=== PATIENT | male | born 1970 | race Caucasian/White ===

== ENCOUNTER 2016-08-13 07:30 | Observation (INO) ==
[2016-08-13] MEDS ORDERED: Aspirin 81 MG TAB.CHEW PO ONE (07:40)
[2016-08-13] MEDS ORDERED: 0.9 % Sodium Chloride 500 ML IVC ONE (07:40)
--- NOTE | 2016-08-13 07:51 | Emergency Department Note ---
Disposition Clinical Impression: Elevated liver enzymes Chest pain Qualifiers: Chest pain type: precordial pain Qualified Code(s): R07.2 - Precordial pain Disposition: Admitted As Inpatient Condition: Good Chest Pain HPI - General Chief Complaint: ED Chest Pain Stated Complaint: chest pain Time Seen by Provider: 08/13/16 07:35 Source: patient Mode of arrival: private vehicle Limitations: no limitations Vital Signs Reviewed: Yes Nursing Notes Reviewed: Yes - History of Present Illness Pt complaint: chest pain Onset (ago): hour(s) Time: 01:00 Duration: intermittent Onset: during rest Pain Location: substernal, left chest Severity: moderate Severity scale (1-10): 6 Quality: aching, heaviness Pain Radiation: none Improves with: nothing Worsens with: exertion, inspiration Context: other (Hx of similar pain about a year or two ago) Associated symptoms: Reports: nausea, dyspnea. Denies: vomiting, diaphoresis, sense of impending doom, syncope, palpitations, fever, cough, leg swelling Treatments prior to arrival chest pain: aspirin - Related Data Home Medications Medication Instructions Recorded Confirmed No Known Home Drugs 08/13/16 08/13/16 Allergies Allergy/AdvReac Type Severity Reaction Status Date / Time Tetracycline Allergy Rash Verified 08/13/16 09:18 All systems ED: reviewed and negative except as stated. Constitutional: Denies: fever, chills, weakness, night sweats Eyes: Denies: vision change Cardiovascular: Reports: as per HPI, chest pain, dyspnea on exertion. Denies: palpitations, orthopnea, edema, syncope Respiratory: Reports: cough (intermittently), dyspnea. Denies: wheezes, hemoptysis, stridor, sputum production Gastrointestinal: Denies: abdominal pain, nausea, vomiting, diarrhea Musculoskeletal: Denies: back pain, neck pain, joint swelling, arthralgia Integumentary: Denies: rash Neurological: Denies: headache, weakness, confusion, vertigo Psychiatric: Denies: anxiety Hematological/Lymphatic: Denies: easy bleeding, easy bruising Chest Pain PMH - Past Medical History Medical history: Reports: non-contributory Psychiatric history: Reports: no psych history - Social History Smoking Status: Current every day smoker Alcohol use: Reports: occasionally Drug use: Reports: cocaine, marijuana, other Physical Exam - General Limitations: no limitations General appearance: alert, in no apparent distress - Head Head exam: atraumatic, normocephalic, normal inspection - Eye Eye exam: Present: normal appearance, PERRL. Absent: scleral icterus, conjunctival injection, periorbital swelling - ENT ENT exam: normal exam, normal oropharynx, mucous membranes moist - Neck Neck exam: Present: normal inspection, full ROM, trachea midline. Absent: meningismus - Chest Chest inspection: Present: normal inspection - Respiratory Respiratory exam: Present: normal lung sounds bilaterally. Absent: respiratory distress, wheezes, stridor, accessory muscle use, prolonged expiratory phase - Cardiovascular Cardiovascular exam: Present: regular rate, normal rhythm, normal heart sounds - Abdominal Exam Abdominal exam: Present: soft, tenderness. Absent: distention, guarding, rebound, rigidity, organomegaly Abdominal tenderness: Present: epigastrium, mild - Extremities Exam Extremities exam: Present: normal inspection, full ROM, normal capillary refill. Absent: pedal edema, calf tenderness - Back Exam Back exam: Present: normal inspection - Neurological Exam Neurological exam: Present: alert, oriented X3, CN II-XII intact, normal gait - Psychiatric Psychiatric exam: Present: normal affect, normal mood - Skin Skin exam: Present: warm, dry, intact, normal color Course Course Narrative: Patient presents for evaluation of chest pain that began around 1:00 this morning. It was midsternal and radiating to the left upper chest wall. He had associated nausea and shortness of breath. The pain was worse with walking around. He was able to lie down and go back to sleep for a few hours. When he awoke again at 3 AM the pain was still present. He was eventually able to go back to sleep and then when he awoke at eight. The pain was better, but he felt short of breath and describes a heavy sensation in his chest. He has had an occasional intermittent cough but no fever or malaise. He denies recent leg pain or swelling. There is no family history of DVT or PE and patient denies history of this as well. He did have a long car trip two weeks ago, however, he has experienced no leg pain or swelling. His Well's score is zero, he is not tachypneic or tachycardic. He describes as significant family history of ACS and cardiac dysrhythmia. Upon arrival, he appeared uncomfortable but nontoxic. He received a nitroglycerin which relieved his pain temporarily. When the pain returned. A second nitroglycerin was given. He is now pain-free and resting comfortably. Troponin is 0.00 and EKG is unchanged compared to 2015. LFTs are mildly elevated, which is new compared to 2015, however bilirubin is normal, lipase is normal. Hospitalist was contacted for admission. Patient has been accepted. - Reevaluation(s) Reevaluation #1: Pain gone. Waiting on troponin Time: 08:29 Reevaluation #2: Pain is back but "not nearly as bad". Will give another NTG Time: 08:59 Vital Signs Temperature 97.6 F 08/13/16 07:31 Pulse Rate 63 08/13/16 07:31 Respiratory Rate 18 08/13/16 07:31 Blood Pressure 150/91 08/13/16 07:31 O2 Sat by Pulse Oximetry 98 08/13/16 07:31 Temperature 97.6 F 08/13/16 07:31 Pulse Rate 61 08/13/16 08:44 Respiratory Rate 14 08/13/16 08:44 Blood Pressure 140/81 08/13/16 08:44 O2 Sat by Pulse Oximetry 99 08/13/16 08:44 Oxygen Delivery Oxygen Delivery Room Air Chest Pain - Medical Records Medical records reviewed: Yes I reviewed the patient's medical records. - Lab Data Lab results reviewed: Yes I reviewed the patient's lab results. Lab results narrative: Laboratory Last Values WBC 6.7 K/mcL (4.3-11.1) 08/13/16 07:59 RBC 4.86 M/mcL (4.19-5.50) 08/13/16 07:59 Hgb 14.5 g/dL (12.9-16.9) 08/13/16 07:59 Hct 43.0 % (37.5-50.1) 08/13/16 07:59 MCV 88.5 fL (83.0-100.0) 08/13/16 07:59 MCH 29.8 pg (28.0-33.3) 08/13/16 07:59 MCHC 33.7 g/dL (31.6-35.5) 08/13/16 07:59 RDW 12.7 % (11.5-14.5) 08/13/16 07:59 Plt Count 234 K/mcL (140-400) 08/13/16 07:59 MPV 10.6 fL (9.4-12.4) 08/13/16 07:59 Immature Gran % 0.7 % (0-4) 08/13/16 07:59 Seg Neutrophils % 58.4 % 08/13/16 07:59 Lymphocytes % 25.6 % 08/13/16 07:59 Monocytes % 9.5 % 08/13/16 07:59 Eosinophils % 5.1 % 08/13/16 07:59 Basophils % 0.7 % 08/13/16 07:59 Neutrophils # 3.9 K/mcL (1.6-8.9) 08/13/16 07:59 Lymphocytes # 1.7 K/mcL (0.6-4.6) 08/13/16 07:59 Monocytes # 0.6 K/mcL (0.0-1.3) 08/13/16 07:59 Eosinophils # 0.3 K/mcL (0.0-0.6) 08/13/16 07:59 Basophils # 0.1 K/mcL (0.0-0.2) 08/13/16 07:59 PT 11.8 Seconds (9.4-12.1) 08/13/16 07:59 INR 1.1 08/13/16 07:59 APTT 31.5 Seconds (26.0-36.0) 08/13/16 07:59 Sodium 141 mEq/L (136-145) 08/13/16 07:59 Potassium 3.5 mEq/L (3.5-4.5) 08/13/16 07:59 Chloride 110 mEq/L (98-109) H 08/13/16 07:59 Carbon Dioxide 22 mEq/L (19-29) 08/13/16 07:59 BUN 16 mg/dL (8-26) 08/13/16 07:59 Creatinine 0.87 mg/dL (0.72-1.25) 08/13/16 07:59 Est GFR ( Amer) > 60 (> 60) 08/13/16 07:59 Est GFR (Non-Af Amer) > 60 (> 60) 08/13/16 07:59 BUN/Creatinine Ratio 18 (6-26) 08/13/16 07:59 Glucose 146 mg/dL (70-99) H 08/13/16 07:59 Calculated Osmolality 296 (280-300) 08/13/16 07:59 Calcium 8.8 mg/dL (8.6-10.8) 08/13/16 07:59 Total Bilirubin 0.5 mg/dL (0.2-1.2) 08/13/16 07:59 Direct Bilirubin 0.2 mg/dL (0.0-0.5) 08/13/16 07:59 Indirect Bilirubin 0.3 mg/dL (0.0-1.2) 08/13/16 07:59 AST 38 Units/L (5-34) H 08/13/16 07:59 ALT 95 Units/L (0-55) H 08/13/16 07:59 Alkaline Phosphatase 69 Units/L (38-126) 08/13/16 07:59 Troponin I 0.00 ng/mL (0-0.03) 08/13/16 07:59 Serum Total Protein 6.6 g/dL (6.0-8.3) 08/13/16 07:59 Albumin 3.3 g/dL (3.5-5.0) L 08/13/16 07:59 Globulin 3.3 g/dL (2.4-3.5) 08/13/16 07:59 Albumin/Globulin Ratio 1.0 (1.1-2.2) L 08/13/16 07:59 Lipase 69 Units/L (8-78) 08/13/16 07:59 Result diagrams: 08/13/16 07:59 08/13/16 07:59 Lab Results 08/13/16 08/13/16 08/13/16 Range/Units 07:59 07:59 07:59 WBC 6.7 (4.3-11.1) K/mcL RBC 4.86 (4.19-5.50) M/mcL Hgb 14.5 (12.9-16.9) g/dL Hct 43.0 (37.5-50.1) % MCV 88.5 (83.0-100.0) fL MCH 29.8 (28.0-33.3) pg MCHC 33.7 (31.6-35.5) g/dL RDW 12.7 (11.5-14.5) % Plt Count 234 (140-400) K/mcL MPV 10.6 (9.4-12.4) fL Immature Gran % 0.7 (0-4) % Seg Neutrophils % 58.4 % Lymphocytes % 25.6 % Monocytes % 9.5 % Eosinophils % 5.1 % Basophils % 0.7 % Neutrophils # 3.9 (1.6-8.9) K/mcL Lymphocytes # 1.7 (0.6-4.6) K/mcL Monocytes # 0.6 (0.0-1.3) K/mcL Eosinophils # 0.3 (0.0-0.6) K/mcL Basophils # 0.1 (0.0-0.2) K/mcL PT 11.8 (9.4-12.1) Seconds INR 1.1 APTT 31.5 (26.0-36.0) Seconds Sodium 141 (136-145) mEq/L Potassium 3.5 (3.5-4.5) mEq/L Chloride 110 H (98-109) mEq/L Carbon Dioxide 22 (19-29) mEq/L BUN 16 (8-26) mg/dL Creatinine 0.87 (0.72-1.25) mg/dL Est GFR ( Amer) > 60 (> 60) Est GFR (Non-Af Amer) > 60 (> 60) BUN/Creatinine Ratio 18 (6-26) Glucose 146 H (70-99) mg/dL Calculated Osmolality 296 (280-300) Calcium 8.8 (8.6-10.8) mg/dL Total Bilirubin 0.5 (0.2-1.2) mg/dL Direct Bilirubin 0.2 (0.0-0.5) mg/dL Indirect Bilirubin 0.3 (0.0-1.2) mg/dL AST 38 H (5-34) Units/L ALT 95 H (0-55) Units/L Alkaline Phosphatase 69 (38-126) Units/L Troponin I (0-0.03) ng/mL Serum Total Protein 6.6 (6.0-8.3) g/dL Albumin 3.3 L (3.5-5.0) g/dL Globulin 3.3 (2.4-3.5) g/dL Albumin/Globulin Ratio 1.0 L (1.1-2.2) Lipase 69 (8-78) Units/L 08/13/16 Range/Units 07:59 WBC (4.3-11.1) K/mcL RBC (4.19-5.50) M/mcL Hgb (12.9-16.9) g/dL Hct (37.5-50.1) % MCV (83.0-100.0) fL MCH (28.0-33.3) pg MCHC (31.6-35.5) g/dL RDW (11.5-14.5) % Plt Count (140-400) K/mcL MPV (9.4-12.4) fL Immature Gran % (0-4) % Seg Neutrophils % % Lymphocytes % % Monocytes % % Eosinophils % % Basophils % % Neutrophils # (1.6-8.9) K/mcL Lymphocytes # (0.6-4.6) K/mcL Monocytes # (0.0-1.3) K/mcL Eosinophils # (0.0-0.6) K/mcL Basophils # (0.0-0.2) K/mcL PT (9.4-12.1) Seconds INR APTT (26.0-36.0) Seconds Sodium (136-145) mEq/L Potassium (3.5-4.5) mEq/L Chloride (98-109) mEq/L Carbon Dioxide (19-29) mEq/L BUN (8-26) mg/dL Creatinine (0.72-1.25) mg/dL Est GFR ( Amer) (> 60) Est GFR (Non-Af Amer) (> 60) BUN/Creatinine Ratio (6-26) Glucose (70-99) mg/dL Calculated Osmolality (280-300) Calcium (8.6-10.8) mg/dL Total Bilirubin (0.2-1.2) mg/dL Direct Bilirubin (0.0-0.5) mg/dL Indirect Bilirubin (0.0-1.2) mg/dL AST (5-34) Units/L ALT (0-55) Units/L Alkaline Phosphatase (38-126) Units/L Troponin I 0.00 (0-0.03) ng/mL Serum Total Protein (6.0-8.3) g/dL Albumin (3.5-5.0) g/dL Globulin (2.4-3.5) g/dL Albumin/Globulin Ratio (1.1-2.2) Lipase (8-78) Units/L - Radiology Data Radiology results reviewed: Yes I reviewed the patient's radiology results. Chest X-Ray 08/13/16 07:40 IMPRESSION: Negative view of the chest. D/ / Ralph Seo MD / Ralph Seo MD Interpreting Provider: Ralph Seo MD - EKG Data EKG attestation: Yes I reviewed and interpreted this EKG. EKG shows normal: sinus rhythm Rate: normal Rhythm: NSR [place]/QRS: IVCD Voltage: c/w LVH Interpretation: unchanged when compared to prior tracing (date) (2014) - Core Measures AMI Core Measures Followed: Yes Heart Score - Score History: Moderately Suspicious EKG: Non Specific repolarisation Disturbance Age: Less than 45 Risk Factors: 1-2 risk factors Troponin: Less than normal limit HEART Score Total: 3
[2016-08-13] MEDS: Nitroglycerin 0.4 MG TAB.SUBL SL ONE ×2 (08:11→09:01)
--- NOTE | 2016-08-13 08:14 | Emergency Department Note ---
Disposition Clinical Impression: Chest pain, Elevated liver enzymes Disposition: Admitted As Inpatient Condition: Good Chest Pain HPI - General Chief Complaint: ED Chest Pain Stated Complaint: chest pain Time Seen by Provider: 08/13/16 07:35 Source: patient Limitations: no limitations Vital Signs Reviewed: Yes Nursing Notes Reviewed: Yes - History of Present Illness Severity scale (1-10): 6 - Related Data Home Medications Medication Instructions Recorded Confirmed No Known Home Drugs 08/13/16 08/13/16 Allergies Allergy/AdvReac Type Severity Reaction Status Date / Time Tetracycline Allergy Rash Verified 08/13/16 09:18 Chest Pain PMH - Past Medical History Medical history: Reports: non-contributory Psychiatric history: Reports: no psych history - Social History Smoking Status: Current every day smoker Alcohol use: Reports: occasionally Drug use: Reports: cocaine, marijuana, other Physical Exam - General Limitations: no limitations General appearance: alert Course Vital Signs Temperature 97.6 F 08/13/16 07:31 Pulse Rate 63 08/13/16 07:31 Respiratory Rate 18 08/13/16 07:31 Blood Pressure 150/91 08/13/16 07:31 O2 Sat by Pulse Oximetry 98 08/13/16 07:31 Temperature 97.6 F 08/13/16 07:31 Pulse Rate 61 08/13/16 08:44 Respiratory Rate 16 08/13/16 10:05 Blood Pressure 124/86 08/13/16 10:05 O2 Sat by Pulse Oximetry 99 08/13/16 08:44 Oxygen Delivery Oxygen Delivery Room Air Chest Pain - MDM Narrative Medical decision making narrative: I examined this patient and my medical decision-making was reviewed with the MEDICAL REIMBURSEMENT SPECIALIST/PA/Advanced Practice Nurse/Resident Physician. I agree with the documented findings, disposition and treatment plan as described except to the extent set forth below. Patient was seen and evaluated by Lorna Quiros, and myself, I agree with her management plan, patient states she has had chest pain which is difficult to determine whether this is reproducible or not he seems to say at times it is but at times not. He says he has had a minor cardiac issue a couple years ago but cannot remember what that was. Apparently had a stress test which he says he thinks was okay but I cannot find that in the records here. He did take aspirin today We will order a cardiac workup on him then reassess. He is resting comfortably at this time. He has well's score of 0 for his PE risks. Patient's in agreement with the workup. Chest X-Ray 08/13/16 07:40 IMPRESSION: Negative view of the chest. D/ / 08/13/2016 08:31:48 Ralph Seo MD / michael Interpreting Provider: Ralph Seo MD [id number] hours: Patient's troponins negative; hE did get relief from the nitroglycerin.Talked about admission versus repeat troponin here in the department. He is in agreement with this plan. 1000 hrs.: Patient's decided he would like admitted to the hospital, we have spoken to the hospitalist and they accepted the patient for admission. Patient' s pain free at this time. - Lab Data Result diagrams: 08/13/16 07:59 08/13/16 07:59 Lab Results 08/13/16 08/13/16 08/13/16 Range/Units 07:59 07:59 07:59 WBC 6.7 (4.3-11.1) K/mcL RBC 4.86 (4.19-5.50) M/mcL Hgb 14.5 (12.9-16.9) g/dL Hct 43.0 (37.5-50.1) % MCV 88.5 (83.0-100.0) fL MCH 29.8 (28.0-33.3) pg MCHC 33.7 (31.6-35.5) g/dL RDW 12.7 (11.5-14.5) % Plt Count 234 (140-400) K/mcL MPV 10.6 (9.4-12.4) fL Immature Gran % 0.7 (0-4) % Seg Neutrophils % 58.4 % Lymphocytes % 25.6 % Monocytes % 9.5 % Eosinophils % 5.1 % Basophils % 0.7 % Neutrophils # 3.9 (1.6-8.9) K/mcL Lymphocytes # 1.7 (0.6-4.6) K/mcL Monocytes # 0.6 (0.0-1.3) K/mcL Eosinophils # 0.3 (0.0-0.6) K/mcL Basophils # 0.1 (0.0-0.2) K/mcL PT 11.8 (9.4-12.1) Seconds INR 1.1 APTT 31.5 (26.0-36.0) Seconds Sodium 141 (136-145) mEq/L Potassium 3.5 (3.5-4.5) mEq/L Chloride 110 H (98-109) mEq/L Carbon Dioxide 22 (19-29) mEq/L BUN 16 (8-26) mg/dL Creatinine 0.87 (0.72-1.25) mg/dL Est GFR ( Amer) > 60 (> 60) Est GFR (Non-Af Amer) > 60 (> 60) BUN/Creatinine Ratio 18 (6-26) Glucose 146 H (70-99) mg/dL Calculated Osmolality 296 (280-300) Calcium 8.8 (8.6-10.8) mg/dL Total Bilirubin 0.5 (0.2-1.2) mg/dL Direct Bilirubin 0.2 (0.0-0.5) mg/dL Indirect Bilirubin 0.3 (0.0-1.2) mg/dL AST 38 H (5-34) Units/L ALT 95 H (0-55) Units/L Alkaline Phosphatase 69 (38-126) Units/L Troponin I (0-0.03) ng/mL Serum Total Protein 6.6 (6.0-8.3) g/dL Albumin 3.3 L (3.5-5.0) g/dL Globulin 3.3 (2.4-3.5) g/dL Albumin/Globulin Ratio 1.0 L (1.1-2.2) Lipase 69 (8-78) Units/L 08/13/16 Range/Units 07:59 WBC (4.3-11.1) K/mcL RBC (4.19-5.50) M/mcL Hgb (12.9-16.9) g/dL Hct (37.5-50.1) % MCV (83.0-100.0) fL MCH (28.0-33.3) pg MCHC (31.6-35.5) g/dL RDW (11.5-14.5) % Plt Count (140-400) K/mcL MPV (9.4-12.4) fL Immature Gran % (0-4) % Seg Neutrophils % % Lymphocytes % % Monocytes % % Eosinophils % % Basophils % % Neutrophils # (1.6-8.9) K/mcL Lymphocytes # (0.6-4.6) K/mcL Monocytes # (0.0-1.3) K/mcL Eosinophils # (0.0-0.6) K/mcL Basophils # (0.0-0.2) K/mcL PT (9.4-12.1) Seconds INR APTT (26.0-36.0) Seconds Sodium (136-145) mEq/L Potassium (3.5-4.5) mEq/L Chloride (98-109) mEq/L Carbon Dioxide (19-29) mEq/L BUN (8-26) mg/dL Creatinine (0.72-1.25) mg/dL Est GFR ( Amer) (> 60) Est GFR (Non-Af Amer) (> 60) BUN/Creatinine Ratio (6-26) Glucose (70-99) mg/dL Calculated Osmolality (280-300) Calcium (8.6-10.8) mg/dL Total Bilirubin (0.2-1.2) mg/dL Direct Bilirubin (0.0-0.5) mg/dL Indirect Bilirubin (0.0-1.2) mg/dL AST (5-34) Units/L ALT (0-55) Units/L Alkaline Phosphatase (38-126) Units/L Troponin I 0.00 (0-0.03) ng/mL Serum Total Protein (6.0-8.3) g/dL Albumin (3.5-5.0) g/dL Globulin (2.4-3.5) g/dL Albumin/Globulin Ratio (1.1-2.2) Lipase (8-78) Units/L
[2016-08-13 08:18] LABS: INR 1.1; Prothrombin Time 11.8 Seconds (9.4-12.1)
[2016-08-13 08:20] LABS: Activated Partial Thrombo Time 31.5 Seconds (26.0-36.0)
[2016-08-13 08:21] LABS: Basophils # 0.1 K/mcL (0.0-0.2); Basophils % 0.7 %; Eosinophils # 0.3 K/mcL (0.0-0.6); Eosinophils % 5.1 %; Hemoglobin 14.5 g/dL (12.9-16.9); Immature Granulocytes % 0.7 % (0-4); Lymphocytes # 1.7 K/mcL (0.6-4.6); Lymphocytes % 25.6 %; Mean Corpuscular HGB Conc 33.7 g/dL (31.6-35.5); Mean Corpuscular Hemoglobin 29.8 pg (28.0-33.3); Mean Corpuscular Volume 88.5 fL (83.0-100.0); Mean Platelet Volume 10.6 fL (9.4-12.4); Monocytes # 0.6 K/mcL (0.0-1.3); Monocytes % 9.5 %; Neutrophils # 3.9 K/mcL (1.6-8.9); Platelet Count 234 K/mcL (140-400); Red Blood Count 4.86 M/mcL (4.19-5.50); Red Cell Distribution Width 12.7 % (11.5-14.5); Segmented Neutrophils % 58.4 %
[2016-08-13 08:34] LABS: Alanine Aminotransferase 95 Units/L (0-55); Albumin 3.3 g/dL (3.5-5.0); Alkaline Phosphatase 69 Units/L (38-126); Aspartate Amino Transferase 38 Units/L (5-34); BUN/Creatinine Ratio 18 (6-26); Bilirubin,Direct 0.2 mg/dL (0.0-0.5); Bilirubin,Indirect 0.3 mg/dL (0.0-1.2); Bilirubin,Total 0.5 mg/dL (0.2-1.2); Blood Urea Nitrogen 16 mg/dL (8-26); Calcium 8.8 mg/dL (8.6-10.8); Carbon Dioxide 22 mEq/L (19-29); Chloride 110 mEq/L (98-109); Globulin 3.3 g/dL (2.4-3.5); Glucose 146 mg/dL (70-99); Lipase 69 Units/L (8-78); Osmolality,Calculated 296 (280-300); Potassium 3.5 mEq/L (3.5-4.5); Sodium 141 mEq/L (136-145); Total Protein 6.6 g/dL (6.0-8.3); eGFR For African Americans > 60 (> 60); eGFR For Non-African Americans > 60 (> 60)
[2016-08-13] MEDS ORDERED: *HR* HYDROcodone/Acet 5/325 mg TABLET PO PRN (09:48)
[2016-08-13] MEDS ORDERED: Naloxone 0.4 MG/ML INJ IVP PRN (09:48)
[2016-08-13] MEDS ORDERED: Ondansetron 4 MG/2 ML VIAL IVP PRN (09:48)
[2016-08-13] MEDS ORDERED: Acetaminophen 325 MG TABLET PO PRN (09:48)
--- NOTE | 2016-08-13 10:15 | Internal Med History&Physical ---
Date of Encounter: 08/13/16 Time of Encounter: 07:45 Assessment and Plan (1) Chest pain Current visit: Yes Status: Acute Last Saturday, he was working in [place] when he developed progressive left- sided chest pain. He thought it was from working too much so he rested for a few minutes and the returned to work. He reports that his chest pain improved but never resolved. This morning, he woke up at 1am because of left-sided chest pain that radiated to his arm and associated diaphoresis, shortness of breath and nausea. No syncope, no palpitations, no cough, no headache, no bleeding. mild diarrhea for two days. In our ED, he received nitroglycerin SL and aspirin with resolution of his chest pain. First troponin is negative. EKG reviewed by me and shows SR HR 73, no acute ischemic changes. CXR reviewed by me, no acute process. continue aspirin. desk monitor. serial troponins. stress test. Qualifiers: Chest pain type: precordial pain Qualified Code(s): R07.2 - Precordial pain (2) Tobacco use Current visit: Yes Status: Acute pt smokes 1/2 ppd and also chews tobacco. I counseled him to quit, he understood the reasons and will try. Internal Medicine - H&P: HPI Chief complaint: chest pain this morning Admitted From: Home Plans for Post Hospital Care: Home History of present illness: Mr. Mitchell is a 46 year old male with past medical history of tobacco use who presents with left-sided chest pain. Last Saturday, he was working in [place] when he developed progressive left-sided chest pain. He thought it was from working too much so he rested for a few minutes and the returned to work. He reports that his chest pain improved but never resolved. This morning, he woke up at 1am because of left-sided chest pain that radiated to his arm and associated diaphoresis, shortness of breath and nausea. No syncope, no palpitations, no cough, no headache, no bleeding. mild diarrhea for two days. In our ED, he received nitroglycerin SL and aspirin with resolution of his chest pain. Past Med Surg Social Fam HX - Past Medical History Medical history: non-contributory Psychiatric history: no psych history - Social History Smoking Status: Current every day smoker Smokeless Tobacco Status: No Alcohol use: occasionally Drug use: cocaine, marijuana, other Internal Medicine - H&P: Meds No Known Home Drugs 08/13/16 [History] Allergies Tetracycline Allergy (Verified 08/13/16 09:18) Rash All Systems PM: A 10-system review of systems was performed and is negative for pertinent findings except as documented above in the HPI. - Constitutional Vitals: Temp Pulse Resp BP Pulse Ox 97.6 F 61 16 124/86 99 08/13/16 07:31 08/13/16 08:44 08/13/16 10:05 08/13/16 10:05 08/13/16 08:44 General appearance: Present: cooperative, A&O X 3, pleasant, no acute distress, answers questions appropriately - Neck Neck exam general surgery: Present: supple, trachea midline. Absent: lymphadenopathy - Respiratory Respiratory exam: Present: CTAB - Cardiovascular Cardiovascular exam: Present: RRR - GI/Abdominal GI/Abdominal exam: Present: normal bowel sounds, soft. Absent: distended, tenderness - Extremities Exam Extremities exam: Absent: pedal edema - Back Exam Back exam: Absent: CVA tenderness (L), CVA tenderness (R) - Neurological Exam Neurological exam: Present: alert, oriented X3, no focal deficits, strengths equal and symetr throughout. Absent: facial droop, speech deficit - Skin Skin exam: Absent: rash Internal Med - H&P Results - Labs CBC & Chem 7: 08/13/16 07:59 08/13/16 07:59
[2016-08-13 14:55] LABS: Bilirubin,Urine Negative (Negative); Blood,Urine Negative (Negative); Clarity,Urine Clear (Clear); Color,Urine Yellow (Yellow); Glucose,Urine (UA) Normal (Normal); Ketones,Urine Negative (Negative); Leukocyte Esterase,Urine Moderate (Negative); Nitrite,Urine Negative (Negative); Protein,Urine Negative (Neg-Trace); Specific Gravity,Urine 1.023 (1.010-1.025); Urobilinogen,Urine Normal (Normal)
[2016-08-13 14:57] LABS: Bacteria,Urine None Seen per hpf (None-Few); Hyaline Casts,Urine None Seen per lpf (None-Few); Squamous Epithelial Cell,Urine Moderate per lpf (None-Few); WBC,Urine 15-30 per hpf (0-3)
[2016-08-13 15:01] LABS: Amphetamine Screen,Urine Negative ng/mL (Cutoff=1000); Barbiturate Screen,Urine Negative ng/mL (Cutoff=200); Benzodiazepines Screen,Urine Negative ng/mL (Cutoff=200); Cannabinoid Screen,Urine Positive ng/mL (Cutoff = 50); Cocaine Screen,Urine Positive ng/mL (Cutoff= 300); Opiate Screen,Urine Negative ng/mL (Cutoff=300); Phencyclidine Screen,Urine Negative ng/mL (Cutoff=25)
--- NOTE | 2016-08-13 16:34 | Electrocardiograph Report ---
[address] [address] Test Date: 2016-08-13 Pat Name: Christal Mitchell Department: 105 Room: 3B48 Gender: M Network Controller: MORGAN : 1970 Requested By: Lorna Quiros Order Number: [id number] Reading MD: Itz Lucero Measurements Intervals [place] Rate: 73 P: 68 ME: 138 QRS: 32 QRSD: 98 T: 48 QT: 387 QTc: 414 Interpretive Statements SINUS RHYTHM POSSIBLE RIGHT VENTRICULAR CONDUCTION DELAY Electronically Signed On 08-13-2016 16:33:07 EDT by Itz Lucero
[2016-08-14] MEDS ORDERED: Regadenoson 0.4 MG/5 ML SYRINGE IVP ONE (06:20)
[2016-08-14 06:33] LABS: BUN/Creatinine Ratio 18 (6-26); Blood Urea Nitrogen 15 mg/dL (8-26); Calcium 8.7 mg/dL (8.6-10.8); Carbon Dioxide 26 mEq/L (19-29); Chloride 109 mEq/L (98-109); Chol/HDL Ratio 5.4 (0-4.9); Cholesterol 209 mg/dL (< 200); Glucose 93 mg/dL (70-99); HDL Cholesterol 39 mg/dL (40-59); LDL Cholesterol,Calculated 143 mg/dL (0-99); Osmolality,Calculated 289 (280-300); Potassium 3.7 mEq/L (3.5-4.5); Sodium 139 mEq/L (136-145); Triglycerides 135 mg/dL (< 150); eGFR For African Americans > 60 (> 60); eGFR For Non-African Americans > 60 (> 60)
[2016-08-14 06:47] VITALS: BP 131/86
--- NOTE | 2016-08-14 08:35 | Discharge Summary ---
Date of Encounter: 08/14/16 Time of Encounter: 08:33 - Discharge Diagnosis (1) Chest pain Priority: Primary Status: Acute Qualifiers: Chest pain type: precordial pain Qualified Code(s): R07.2 - Precordial pain (2) Cocaine abuse Priority: Primary Status: Acute (3) Tobacco use Priority: Secondary Status: Chronic - Discharge Medications Prescriptions: Aspirin 81 mg PO DAILY #30 tab.chew Home Medications: Acetaminophen [Tylenol] 650 mg PO Q6HR PRN #0 tablet 08/14/16 [Rx] Aspirin 81 mg PO DAILY #30 tab.chew 08/14/16 [Rx] Allergies/Adverse Reactions: Allergies Tetracycline Allergy (Verified 08/13/16 09:18) Rash Procedures/tests Complete & Pending: Procedures Performed prior 72 hours Category Date Time Status NM pillo perf SPECT multi [NM] Routine Exams 08/14/16 09:52 Stop Req EKG [ECG 12 lead ECG] [ECG] AM 0600 Y 08/14/16 06:00 Ordered SP pharm nuclear stress Routine Y 08/14/16 07:00 Stop Req Date of admission: 08/13/16 09:42 Primary care physician: PCP NO - Patient Status Disposition: Home, Self-Care Condition: Good Functional capacity at discharge: independent ambulation Overall status at discharge: patient is back to baseline - Discharge Instructions Instructions: Aspirin (By mouth), Chest Pain (DC) Follow Up With: NO,PCP [Primary Care Provider] - (f/u in the residency clininc in 1 week) Additional Instructions: please check your blood pressure at home daily, write down numbers and bring records to primary care doctor. Take aspirin daily and follow up with primary care doctor. Please call the [facility] to set up a new PCP at [phone] - Diet and Activity Activity: resume usual activities as tolerated Diet: regular diet Interval History: patient reports he did not snorted or ingested cocaine, he did however handle cocaine with his hands and also cooked it and probably breathed it. Hospital course: Mr. Mitchell is a 46 year old male with past medical history of tobacco use who presents with atypical chest pain. UDS positive for cocaine. Troponins negative 2. EKG was negative for ischemia. Chest x-ray was negative for an acute process. Patient remained asymptomatic and hemodynamically jett during the hospitalization. No telemetry events. Upon questioning, patient reports handling cocaine and cocaine 8 at home. He is still denying any indigestion or inhalation of drugs. explain in detail avoid any contact with cocaine or any drugs. He was informed of the complications of cocaine including myocardial infarction, sectional our talk, sudden cardiac , stroke, elevated blood pressure. He verbalized understanding. He agreed with the plan. PLAN: aspirin. BP monitor at home. f/u with pcp in 1 week. - Time Spent with Patient Total time spent providing and/or coordinating discharge services: - Constitutional Vitals: Temp Pulse Resp BP Pulse Ox 98.0 F 59 15 131/86 97 08/14/16 06:43 08/14/16 06:43 08/14/16 06:43 08/14/16 06:43 08/14/16 06:43 General appearance: Present: cooperative, A&O X 3, pleasant, no acute distress, answers questions appropriately - Eye Eye exam: Present: PERRL, sclera anicteric - Neck Neck exam general surgery: Present: supple, trachea midline. Absent: lymphadenopathy - Respiratory Respiratory exam: Present: CTAB - GI/Abdominal GI/Abdominal exam: Present: normal bowel sounds, soft. Absent: distended, tenderness - Extremities Exam Extremities exam: Absent: pedal edema - Back Exam Back exam: Absent: CVA tenderness (L), CVA tenderness (R) - Neurological Exam Neurological exam: Present: alert, oriented X3, no focal deficits, strengths equal and symetr throughout. Absent: facial droop, speech deficit - Skin Skin exam: Absent: rash
[2016-08-14] MEDS ORDERED: Aspirin 81 MG TAB.CHEW PO SCH (09:00)
== END 2016-08-14 09:15 | disposition home or self-care (01) ==
LOC: 3BNU 07:30 → EMEROO 07:30 → SUATTDRO 09:42 → 3BNU 10:12
PROVIDERS: ADMIT Internal Medicine; ATTEND Internal Medicine